=== PATIENT | male | born 1965 | race Caucasian/White ===

== ENCOUNTER 2016-11-01 06:27 | Day surgery (SDC) | payer OTHER ==
[2016-10-25 15:19] VITALS: BMI 29.4
[~2016-11-01 06:27] MED LIST: DEXAMETHASONE SOD PHOSPHATE 10 MG/ML 1 ML VIAL IV ONE; HEPARIN SODIUM,PORCINE 5,000 UNIT/ML 1 ML VIAL SQ ONE; LACTATED RINGERS 1,000 ML IV SCH; LIDOCAINE 1% 20 ML VIAL (10MG/ML) FOR IV START INTRADERMA PRN; MIDAZOLAM 2 MG/2 ML VIAL IV PRN; ONDANSETRON 4 MG/2 ML VIAL IVP ONE; SCOPOLAMINE 1.5MG/72HR PATCH TRANSDERM ONE; ceFAZolin 2 GM in SODIUM CHLORIDE 0.9% 100 ML IVPB ONE
[2016-11-01] MEDS ORDERED: LACTATED RINGERS 1,000 ML IV ONE ×2 (07:20→12:08)
[2016-11-01] MEDS ORDERED: LIDOCAINE 1% 20 ML VIAL (10MG/ML) FOR IV START INTRADERMA ONE ×2 (07:20→07:25)
[2016-11-01] MEDS ORDERED: MIDAZOLAM 2 MG/2 ML VIAL ONE (07:47)
[2016-11-01] MEDS ORDERED: GLYCOPYRROLATE 0.2 MG/ML 2 ML VIAL ONE (07:47)
[2016-11-01] MEDS ORDERED: PROPOFOL 10 MG/ML 20 ML VIAL IV ONE (07:47)
[2016-11-01] MEDS ORDERED: KETOROLAC 30 MG/ML 1 ML VIAL ONE (07:47)
[2016-11-01] MEDS ORDERED: SUCCINYLCHOLINE CHLORIDE 100 MG/5 ML SYR IV ONE (07:47)
[2016-11-01] MEDS ORDERED: fentaNYL (PF) 50 MCG/ML 2 ML AMP ONE (07:47)
[2016-11-01] MEDS ORDERED: LIDOCAINE 1% INJ 10MG/ML (20 ML MDV) ONE (07:47)
[2016-11-01] MEDS ORDERED: NEOSTIGMINE 1 MG/ML 10 ML VIAL ONE (07:47)
[2016-11-01] MEDS ORDERED: ROCURONIUM BROMIDE 10 MG/ML 10 ML VIAL IV ONE (07:47)
[2016-11-01] MEDS ORDERED: HYDROmorphone (PF) 1 MG/ML ONE (07:47)
--- NOTE | 2016-11-01 07:49 | P.GSHP ---
History of Present Illness H&P Date: 11/01/16 Chief Complaint: Umbilical hernia Vision 50-year-old male who presented with an enlarging umbilical hernia. There is some associated diastases recti. It is not painful. On this started presenting itself was 6 months ago and since then has grown in size. He does lift some to lift heavy weights but not a lot of heavy lifting. There is no nausea no vomiting or signs of obstruction. - Constitutional Constitutional: Denies chills, Denies fever - EENT Eyes: denies blurred vision, denies pain Ears, nose, mouth and throat: Denies headache, Denies sore throat - Cardiovascular Cardiovascular: Denies chest pain, Denies shortness of breath - Respiratory Respiratory: Denies cough, Denies 7 - Gastrointestinal Gastrointestinal: Denies abdominal pain, Denies diarrhea, Denies nausea, Denies vomiting - Genitourinary (Male) Genitourinary: Denies dysuria, Denies hematuria - Musculoskeletal Musculoskeletal: Denies myalgias Past Medical History Past Medical History: GERD/Reflux History of Any Multi-Drug Resistant Organisms: None Reported Past Surgical History: Appendectomy Additional Past Surgical History / Comment(s): COLONOSCOPY/POLYPS REMOVED Past Anesthesia/Blood Transfusion Reactions: No Reported Reaction Past Psychological History: No Psychological Hx Reported Smoking Status: Never smoker Past Alcohol Use History: Occasional Past Drug Use History: None Reported - Past Family History Mother Family Medical History: No Reported History Medications and Allergies Home Medications Medication Instructions Recorded Confirmed Type Multivitamins, Thera [Multivitamin] 1 tab PO DAILY 10/25/16 11/01/16 History Omeprazole [PriLOSEC] 20 mg PO AC-BRKT 10/25/16 11/01/16 History Allergies Allergy/AdvReac Type Severity Reaction Status Date / Time Penicillins Allergy Rash/Hives Verified 11/01/16 06:54 Surgical - Exam Vital Signs Temp Pulse Resp BP Pulse Ox 97.7 F 87 18 133/85 97 11/01/16 06:50 11/01/16 06:50 11/01/16 06:50 11/01/16 06:50 11/01/16 06:50 - General well developed, well nourished, no distress - Eyes normal ocular movement, no icteric - Neck no masses, trachea midline - Respiratory normal respiratory effort, clear to auscultation - Cardiovascular Rhythm: regular - Abdomen Abdomen: soft, non tender, no guarding, no rigid, no rebound Assessment and Plan (1) Umbilical hernia without obstruction and without gangrene Status: Acute Plan: Patiet has an umbilical hernia that is growing progressively I have recommeneded a arobot assisted laparoccopic repair. He understands and is willing to proceed
[2016-11-01] MEDS ORDERED: BUPIVACAIN-EPI 0.25%-1:200,000 30 ML VIAL SQ ONE (08:23)
--- NOTE | 2016-11-01 10:16 | P.OP ---
Date of Procedure: 11/01/16 Preoperative Diagnosis: Umbilical hernia with diastasis recti Postoperative Diagnosis: Umbilical and ventral hernia with incarcerated fat and diastasis recti Procedure(s) Performed: Robot assited laparoscopic repair of umbilical and ventral hernias with plication of diastasis recti Anesthesia: HERVE Surgeon: Redd Lux Estimated Blood Loss (ml): 10 Pathology: none sent Condition: stable Disposition: PACU Operative Findings: Multiple hernia. Umbilical hernia fascial defect measured 2.4 cm, the 2 smaller hernias were4 cm superior to it and the fascial defect measured o.4 and 0.3 cm and contained incarcerated fat with at least average 4 cm diastasis. Description of Procedure: Informed consent was obtained and the patient prior to the operation. Patient identified in the preoperative holding area taken the operating room placed in supine position given general anesthesia with endotracheal intubation. The patient's right arm was tucked and left was extended out After appropriately positioning the patient the patient was prepped and draped in the usual sterile surgical fashion. Appropriate timeout was called. Patient received 2 g of Ancef for skin prophylaxis and 5000 units of subcu heparin for thromboprophylaxis preoperatively. SCDs were placed. Left upper quadrant with a identified and infiltrated with lidocaine small incision was made with the help of 11 blade and then a Veress needle was introduced position of which was checked with the help of the drop test. The abdomen was then insufflated to 15 mmHg. Once that was done, 12 mm port was placed in the left upper quadrant and 2 8 mm ports were placed in the left upper quadrant and left lower quadrant respectively. At this time for laparoscopic scope was removed and the robot was docked with the 12 mm camera and the progress in the left hand and scissors in the right hand were taken.. The hernia was identified and measured to be approximately 2.4 cm fascial defect . A preperitoneal plane was created around the fascial defect extending below so that there was good area to place the mesh . While dissecting out the preperitoneal fat and the fascia stability with the epigastrium there were 2 further fascial defects noted and the fat was removed from them. They were measured at 0.3 and 0.4 cm fascial defects. There was also significant amount of diastases superior and inferior to both of these hernias. Due to the diastases thinning out of the central fascia decision was made to plicate the entire diastases and close the fascial defects. Oh stratification suture was used to close both the fascial defect and run placating running suture from the epigastrium all the way down to 4 cm below the lower end of the umbilical defect and it was then run back upwards so as to appropriately plicated and completely releasing the tension on the first suture line. Once that had been done the fascial defect was measured and 15.4 x 10.4 size mesh were was selected. This was the mesh with the echo positioning system. This was introduced in the abdominal cavity and elevated giving good at least 4.5 cm fascial currently on the fascial defects on all sides. Once that was done it was sutured at the edges with the help of 20V lock. A central suture between the mesh and the abdominal anterior abdominal wall was also done so as to oppose it well with the abdominal wall. This was done with a 20V lock as well. Once that was done and the mesh was in appropriate position and the procedure was completed. There is no bleeding. At this time the procedure was terminated. The robot was undocked and its instruments removed. Using the laparoscope the 12 mm port site was closed with a Rony Avila and 0 PDS. The ports were removed abdomen was desufflated and the skin was closed with the help of 4-0 Monocryl. Dermabond was applied. The patient tolerated the procedure well there were no complications patient was taken to recovery room in stable condition after extubation.
[2016-11-01 10:23] VITALS: TEMP 98.8
[2016-11-01] MEDS: HYDROmorphone 1 MG/ML 1 ML SYRINGE IVP PRN ×2 (10:40→10:59)
[2016-11-01 12:22] VITALS: RESP 16
[2016-11-01 14:37] VITALS: BP 118/72; PULSE 94
== END 2016-11-01 15:22 | disposition home or self-care (01) ==
LOC: OR 06:27
PROVIDERS: ATTEND Surgery
DX: K43.6 Other and unspecified ventral hernia with obstruction, without gangrene (principal); K42.0 Umbilical hernia with obstruction, without gangrene; K21.9 Gastro-esophageal reflux disease without esophagitis; Z79.899 Other long term (current) drug therapy; Z88.0 Allergy status to penicillin
CPT/HCPCS: 86900; 86901; 86850; 49653; C1781; J2250; J1644; J1100; J2710; J0690; J2405; J2001; J3010; J1885; J1170; J0330; J2704

== ENCOUNTER 2018-03-10 06:44 | Day surgery (SDC) | payer OTHER ==
--- NOTE | 2018-03-09 22:56 | P.GSHP ---
History of Present Illness H&P Date: 03/10/18 CHIEF COMPLAINT: Colon screen HISTORY OF PRESENT ILLNESS: The patient is a 52-year-old male who presents for colon screen. Lower endoscopy was offered for further evaluation and management. PAST MEDICAL HISTORY: Please see list. PAST SURGICAL HISTORY: Please see list. MEDICATIONS: Please see list. ALLERGIES: Please see list. SOCIAL HISTORY: No illicit drug use FAMILY HISTORY: No reports of Crohn disease or ulcerative colitis. REVIEW OF ORGAN SYSTEMS: CONSTITUTIONAL: No reports of fevers or chills. PHYSICAL EXAM: VITAL SIGNS: Stable GENERAL: Well-developed pleasant in no acute distress. HEENT: No scleral icterus. Extraocular movements grossly intact. Moist buccal mucosa. NECK: Supple without lymphadenopathy. CHEST: Unlabored respirations. Equal bilateral excursions. CARDIOVASCULAR: Regular rate and rhythm. Distal 2+ pulses. ABDOMEN: Soft, nontender, nondistended. MUSCULOSKELETAL: No clubbing, cyanosis, or edema. ASSESSMENT: 1. Colon screen. PLAN: 1. Recommend proceeding with a lower endoscopy Past Medical History Past Medical History: GERD/Reflux History of Any Multi-Drug Resistant Organisms: None Reported Past Surgical History: Appendectomy, Hernia Repair Additional Past Surgical History / Comment(s): HIATAL HERNIA IN OCT 2016. COLONOSCOPY/POLYPS REMOVED Past Anesthesia/Blood Transfusion Reactions: No Reported Reaction Past Psychological History: No Psychological Hx Reported Smoking Status: Never smoker Past Alcohol Use History: Occasional Past Drug Use History: None Reported - Past Family History Mother Family Medical History: No Reported History Medications and Allergies Home Medications Medication Instructions Recorded Confirmed Type Multivitamins, Thera [Multivitamin] 1 tab PO DAILY 10/25/16 03/07/18 History Omeprazole [PriLOSEC] 20 mg PO AC-BRKFST 10/25/16 03/07/18 History Allergies Allergy/AdvReac Type Severity Reaction Status Date / Time Penicillins Allergy Rash/Hives Verified 03/07/18 10:44
[2018-03-10 07:04] VITALS: RESP 16; TEMP 97.8
[2018-03-10] MEDS ORDERED: LACTATED RINGERS 1,000 ML IV ONE (07:09)
[2018-03-10] MEDS ORDERED: LIDOCAINE 1% 20 ML VIAL (10MG/ML) FOR IV START INTRADERMA ONE (07:09)
[2018-03-10] MEDS ORDERED: PROPOFOL 10 MG/ML 20 ML VIAL IV ONE (07:45)
[2018-03-10] MEDS ORDERED: LIDOCAINE 1% INJ 10MG/ML (20 ML MDV) ONE (07:45)
--- NOTE | 2018-03-10 08:11 | P.PCN ---
Date of Procedure: 03/10/18 Description of Procedure: PREOPERATIVE DIAGNOSIS: Colonoscopy screening. Family history of colon cancer Family history of colon polyp POSTOPERATIVE DIAGNOSIS: Colonoscopy screening. Family history of colon cancer Family history of colon polyp Diverticulosis, scattered. External hemorrhoids Internal hemorrhoids OPERATION: Colonoscopy to the ileocecal valve and appendiceal orifice. SURGEON: Rina Kohler MD. ANESTHESIA: MAC. INDICATIONS: The patient is a 52-year-old male who presents for colonoscopy screening. Last colonoscopy was 5 years ago. Benefits and risks were described and informed consent was obtained. DESCRIPTION OF PROCEDURE: The patient had undergone Gatorade, MiraLAX and Dulcolax prep. He had been brought into the operating room and laid in the left lateral decubitus position. After adequate intravenous sedation, the rectum was examined with 2% lidocaine jelly. The prostate was smooth and without nodularity. External hemorrhoids, grade 3, were encountered. The rectal tone was within normal limits. No lesions were palpated in the rectal vault. An Olympus colonoscope was advanced until the ileocecal valve and appendiceal orifice were clearly viewed. The prep was good with visualization of the mucosal folds. Scattered diverticulosis was encountered. No colonic polyps were found. No evidence of focal colitis was found. Retroflexion of the scope demonstrated grade 2 internal hemorrhoids without active bleeding or inflammation. The colon was desufflated. The patient had tolerated the procedure well. Withdrawal time was over 6 minutes. FINDINGS: Internal hemorrhoids, grade 2 External prolapsed hemorrhoids, grade 3 No arteriovenous malformations. No adenomatous polyps. No focal colitis. Scattered diverticulosis RECOMMENDATIONS: Lower endoscopy in 5 years, 2022 Plan - Discharge Summary Discharge Rx Participant: No New Discharge Prescriptions: No Action Multivitamins, Thera [Multivitamin] 1 tab PO DAILY Omeprazole [PriLOSEC] 20 mg PO AC-BRKFST Discharge Medication List Multivitamins, Thera [Multivitamin] 1 tab PO DAILY 10/25/16 [History] Omeprazole [PriLOSEC] 20 mg PO AC-BRKFST 10/25/16 [History]
[2018-03-10 08:32] VITALS: BP 107/75; PULSE 65
== END 2018-03-10 08:50 | disposition home or self-care (01) ==
LOC: ORWHC2ENDO 06:44
PROVIDERS: ATTEND Surgery Plastic and Reconstructive Surgery
DX: Z12.11 Encounter for screening for malignant neoplasm of colon (principal); K21.9 Gastro-esophageal reflux disease without esophagitis; K57.30 Diverticulosis of large intestine without perforation or abscess without bleeding; K64.2 Third degree hemorrhoids; Z88.0 Allergy status to penicillin; Z80.0 Family history of malignant neoplasm of digestive organs; Z83.71 Family history of colonic polyps; Z79.899 Other long term (current) drug therapy
CPT/HCPCS: 45378; J2001; J2704

== ENCOUNTER → 2020-08-03 | Outpatient (CLI) | payer OTHER ==
[2020-08-03 15:59] LABS: Basophils # (A) 0.1 k/uL (0-0.2); Basophils % (A) 1 %; Eosinophils # (A) 0.1 k/uL (0-0.7); Eosinophils % (A) 2 %; HCT 45.7 % (39.0-53.0); HGB 15.4 gm/dL (13.0-17.5); Lymphocytes # (A) 1.6 k/uL (1.0-4.8); Lymphocytes % (A) 20 %; MCH 30.3 pg (25.0-35.0); MCHC 33.6 g/dL (31.0-37.0); MCV 90.1 fL (80.0-100.0); Monocytes # (A) 0.4 k/uL (0-1.0); Monocytes % (A) 6 %; Neutrophils # (A) 5.6 k/uL (1.3-7.7); Neutrophils % (A) 71 %; Platelet Count 290 k/uL (150-450); RBC 5.07 m/uL (4.30-5.90); RDW 12.3 % (11.5-15.5); WBC 7.9 k/uL (3.8-10.6)
[2020-08-04 00:08] LABS: Erythrocyte Sedimentation Rate 3 mm/Hr (0-20)
[2020-08-04 05:29] LABS: C Reactive Protein <0.4 mg/dL (0.0-0.8); Rheumatoid Factor, Qnt 6 IU/mL (0-15); Uric Acid 5.3 mg/dL (3.7-8.7)
== END | disposition home or self-care (01) ==
LOC: LABWHC1 14:49
PROVIDERS: ATTEND Podiatrist Foot & Ankle Surgery
DX: M00.9 Pyogenic arthritis, unspecified (principal)
CPT/HCPCS: 36415; 84550; 85025; 85652; 86038; 86140; 86431; 86812

== ENCOUNTER → 2021-03-16 | Outpatient (CLI) | payer OTHER ==
[2021-03-16 11:47] LABS: Basophils # (A) 0.05 X 10*3/uL (0.00-0.10); Basophils % (A) 0.7 %; Eosinophils # (A) 0.19 X 10*3/uL (0.04-0.35); Eosinophils % (A) 2.8 %; HCT 46.1 % (39.6-50.0); HGB 15.1 g/dL (13.0-17.0); Lymphocytes # (A) 1.56 X 10*3/uL (0.90-5.00); Lymphocytes % (A) 23.2 %; MCH 29.4 pg (27.0-32.0); MCHC 32.8 g/dL (32.0-37.0); MCV 89.7 fL (80.0-97.0); Mean Platelet Volume 9.6 fL (9.5-12.2); Monocytes # (A) 0.58 X 10*3/uL (0.20-1.00); Monocytes % (A) 8.6 %; Platelet Count 275 X 10*3/uL (140-440); RBC 5.14 X 10*6/uL (4.40-5.60); RDW 12.2 % (11.5-14.5); WBC 6.73 X 10*3/uL (4.50-10.00)
[2021-03-16 15:15] LABS: African American GFR (CKD) 97.8 (60.0-200.0); Albumin 4.8 g/dL (3.80-4.90); Albumin/Globulin Ratio 2.18 (1.60-3.17); Anion Gap 9.2 mmol/L (4.00-12.00); Calcium 10.2 mg/dL (8.7-10.3); Carbon Dioxide 26.8 mmol/L (21.6-31.8); Chol/HDL Ratio 4.54; Globulin 2.2 g/dL (1.6-3.3); LDL Cholesterol,Calculated 128.4 mg/dL (0.0-131.0); Magnesium 2.1 mg/dL (1.5-2.4); Non-African American GFR(CKD) 84.4 (60.0-200.0); Potassium 5.3 mmol/L (3.5-5.5); Total Bilirubin 0.7 mg/dL (0.3-1.2); VLDL Calculation 41.6 mg/dL (5.00-40.00)
[2021-03-16 15:22] LABS: Prostate Specific Antigen 1.7 ng/mL (0.0-3.5)
== END | disposition home or self-care (01) ==
LOC: LABWHC1 07:00
PROVIDERS: ATTEND Family Medicine
DX: Z00.00 Encounter for general adult medical examination without abnormal findings (principal); Z12.5 Encounter for screening for malignant neoplasm of prostate; Z11.59 Encounter for screening for other viral diseases; R20.2 Paresthesia of skin
CPT/HCPCS: 36415; 80053; 80061; 82607; 83735; 84153; 84443; 85025; 86803

== ENCOUNTER 2023-04-11 07:23 | Day surgery (SDC) | payer OTHER ==
[~2023-04-11 07:23] MED LIST changes: -DEXAMETHASONE SOD PHOSPHATE 10 MG/ML 1 ML VIAL IV ONE; -HEPARIN SODIUM,PORCINE 5,000 UNIT/ML 1 ML VIAL SQ ONE; -LIDOCAINE 1% 20 ML VIAL (10MG/ML) FOR IV START INTRADERMA PRN; -MIDAZOLAM 2 MG/2 ML VIAL IV PRN; -ONDANSETRON 4 MG/2 ML VIAL IVP ONE; -SCOPOLAMINE 1.5MG/72HR PATCH TRANSDERM ONE; -ceFAZolin 2 GM in SODIUM CHLORIDE 0.9% 100 ML IVPB ONE
--- NOTE | 2023-04-11 07:39 | P.GSHP ---
History of Present Illness H&P Date: 04/11/23 CHIEF COMPLAINT: Colon screen HISTORY OF PRESENT ILLNESS: The patient is a 57-year-old male who presents for colon screen. Lower endoscopy was offered for further evaluation and management. PAST MEDICAL HISTORY: Please see list. PAST SURGICAL HISTORY: Please see list. MEDICATIONS: Please see list. ALLERGIES: Please see list. SOCIAL HISTORY: No illicit drug use FAMILY HISTORY: No reports of Crohn disease or ulcerative colitis. REVIEW OF ORGAN SYSTEMS: CONSTITUTIONAL: No reports of fevers or chills. PHYSICAL EXAM: VITAL SIGNS: Stable GENERAL: Well-developed pleasant in no acute distress. HEENT: No scleral icterus. Extraocular movements grossly intact. Moist buccal mucosa. NECK: Supple without lymphadenopathy. CHEST: Unlabored respirations. Equal bilateral excursions. CARDIOVASCULAR: Regular rate and rhythm. Distal 2+ pulses. ABDOMEN: Soft, nontender, nondistended. MUSCULOSKELETAL: No clubbing, cyanosis, or edema. ASSESSMENT: 1. Colon screen. PLAN: 1. Recommend proceeding with a lower endoscopy Past Medical History Past Medical History: GERD/Reflux History of Any Multi-Drug Resistant Organisms: None Reported Past Surgical History: Appendectomy, Hernia Repair Additional Past Surgical History / Comment(s): 04/04/23 MASS REMOVED FROM BACK OF NECK AREA IN DR. LOERA. HIATAL HERNIA IN OCT 2016. COLONOSCOPY/POLYPS REMOVED Past Anesthesia/Blood Transfusion Reactions: No Reported Reaction Past Psychological History: No Psychological Hx Reported Smoking Status: Never smoker Past Alcohol Use History: Occasional Past Drug Use History: None Reported - Past Family History Mother Family Medical History: No Reported History Medications and Allergies Home Medications Medication Instructions Recorded Confirmed Type Multivitamins, Thera [Multivitamin] 1 tab PO DAILY 10/25/16 04/08/23 History Omeprazole [PriLOSEC] 20 mg PO AC-BRKFST 10/25/16 04/08/23 History Allergies Allergy/AdvReac Type Severity Reaction Status Date / Time Penicillins Allergy Rash/Hives Verified 04/08/23 12:17
[2023-04-11 08:21] VITALS: TEMP 97.8
[2023-04-11] MEDS ORDERED: PROPOFOL 10 MG/ML 20 ML VIAL IV ONE (08:22)
--- NOTE | 2023-04-11 09:10 | P.PCN ---
Date of Procedure: 04/11/23 Description of Procedure: PREOPERATIVE DIAGNOSIS: Colonoscopy screening. Family history colon cancer, father POSTOPERATIVE DIAGNOSIS: Colonoscopy screening. Diverticulosis, scattered. OPERATION: Colonoscopy to the cecum, ileocecal valve and appendiceal orifice. SURGEON: Rina Kohler MD. ANESTHESIA: MAC. INDICATIONS: The patient is a 57-year-old male who presents for colonoscopy screening. Last colonoscopy 5 years ago. Benefits and risks were described and informed consent was obtained. DESCRIPTION OF PROCEDURE: The patient had undergone Sutab prep. The patient had been brought into the operating room and laid in the left lateral decubitus position. After adequate intravenous sedation, the rectum was examined with 2% lidocaine jelly. No external hemorrhoids were encountered. The rectal tone was within normal limits. No lesions were palpated in the rectal vault. An Olympus colonoscope was advanced until the cecum, ileocecal valve and appendiceal orifice were clearly viewed. The prep was fair. Scattered diverticulosis was encountered. No colonic polyps were found. No evidence of focal colitis was found. Retroflexion of the scope demonstrated grade 3 internal hemorrhoids without active bleeding or inflammation. The colon was desufflated. The patient had tolerated the procedure well. Withdrawal time was over 6 minutes.AC FINDINGS: Aronchick preparation quality scale 2+ (1-5) Internal hemorrhoids, grade 3 External prolapsed hemorrhoids, grade 3 No arteriovenous malformations. No adenomatous polyps. No focal colitis. Sigmoid diverticulosis RECOMMENDATIONS: Lower endoscopy in 2027 Plan - Discharge Summary New Discharge Prescriptions: Continue Multivitamins, Thera [Multivitamin (formulary)] 1 tab PO DAILY Omeprazole [PriLOSEC] 20 mg PO -[facility] Discharge Medication List Multivitamins, Thera [Multivitamin (formulary)] 1 tab PO DAILY 10/25/16 [History] Omeprazole [PriLOSEC] 20 mg PO AC-BRKFST 10/25/16 [History] Follow up Appointment(s)/Referral(s): Rina Kohler MD [STAFF PHYSICIAN] - As Needed Patient Instructions/Handouts: Diverticulosis Diet (GEN), Diverticulosis (GEN) Activity/Diet/Wound Care/Special Instructions: Repeat colonoscopy 5 years, 2027 Discharge Disposition: HOME SELF-CARE
[2023-04-11 09:14] VITALS: BP 113/79; PULSE 72; RESP 16
== END 2023-04-11 09:30 | disposition home or self-care (01) ==
LOC: ORWHC2ENDO 07:23
PROVIDERS: ATTEND Surgery Plastic and Reconstructive Surgery
DX: Z12.11 Encounter for screening for malignant neoplasm of colon (principal); K57.30 Diverticulosis of large intestine without perforation or abscess without bleeding; K64.2 Third degree hemorrhoids; K64.4 Residual hemorrhoidal skin tags; K21.9 Gastro-esophageal reflux disease without esophagitis; F10.90 Alcohol use, unspecified, uncomplicated; Z90.49 Acquired absence of other specified parts of digestive tract; Z80.0 Family history of malignant neoplasm of digestive organs; Z98.890 Other specified postprocedural states; Z88.0 Allergy status to penicillin
CPT/HCPCS: 45378; J2704

== ENCOUNTER → 2024-06-06 | Outpatient (CLI) | payer OTHER | END | disposition home or self-care (01) | LOC: LABWHC1 09:02 | PROVIDERS: ATTEND Family Medicine | DX: Z00.00 Encounter for general adult medical examination without abnormal findings (principal); Z12.5 Encounter for screening for malignant neoplasm of prostate | CPT/HCPCS: 80061; 80053; 85025; 36415; G0103 ==

== ENCOUNTER → 2024-12-09 | Outpatient (CLI) | payer OTHER | END | disposition home or self-care (01) | LOC: LABPAT 14:34 | PROVIDERS: ATTEND Family Medicine | DX: Z00.00 Encounter for general adult medical examination without abnormal findings (principal); Z12.5 Encounter for screening for malignant neoplasm of prostate | CPT/HCPCS: 36415; 93005 ==

== ENCOUNTER → 2024-12-12 | Outpatient (CLI) | payer OTHER ==
[2024-12-12 13:28] LABS: Chol/HDL Ratio 4.25 Ratio; LDL Cholesterol,Calculated 124.3 mg/dL (0.0-131.0)
== END | disposition home or self-care (01) ==
LOC: LABWHC1 08:07
PROVIDERS: ATTEND Family Medicine
DX: Z00.00 Encounter for general adult medical examination without abnormal findings (principal)
CPT/HCPCS: 36415; 80061

== ENCOUNTER 2024-12-16 09:40 | Day surgery (SDC) | payer OTHER ==
[2024-12-11 15:43] VITALS: BMI 29.6
--- NOTE | 2024-12-15 19:20 | HP ---
HISTORY AND PHYSICAL DATE OF SURGERY: 12/16/2024. HISTORY OF PRESENT ILLNESS: Zafar Sutherland is a 58-year-old gentleman, seen with progressive left knee pain. After having treatment options discussed, he elected to proceed with left knee arthroscopy. Consent was obtained. PAST MEDICAL HISTORY: Gastroesophageal reflux disease. PAST SURGICAL HISTORY: Noncontributory. DAILY MEDICATIONS: 1. Prilosec. 2. Ibuprofen. ALLERGIES: Penicillin. SOCIAL HISTORY: He denies current tobacco use. PHYSICAL EVALUATION OF THE LEFT KNEE: His range of motion is -1/2 to 120 degrees. He has a mild effusion. Tenderness in the medial joint line. Positive medial Dyan's. Ligaments stable. Hip rotation is without pain. Distal neurovascular exam is intact. IMAGING STUDIES: Radiographs of the left knee revealed mild osteoarthritis. MRI of the left knee revealed medial meniscal tear. IMPRESSION: Internal derangement of left knee with medial meniscal tear. PLAN: Left knee arthroscopy with partial medial meniscectomy and debridement. MMODL / IJN: [id number] /
[2024-12-16] MEDS: IV FLUID CONTINUATION 1,000 ML IV ONE (10:06)
[2024-12-16] MEDS: DEXAMETHASONE SOD PHOSPHATE 4 MG/ML 1 ML VIAL IV ONE (10:37)
[2024-12-16] MEDS: ONDANSETRON 4 MG/2 ML VIAL IVP ONE (10:37)
[2024-12-16] MEDS: LACTATED RINGERS 1,000 ML IV SCH (10:39)
[2024-12-16] MEDS: FAMOTIDINE 20 MG/2 ML VIAL IV STA (10:56)
[2024-12-16] MEDS ORDERED: fentaNYL (PF) 50 MCG/ML 2 ML AMP ONE (11:15)
[2024-12-16] MEDS ORDERED: MIDAZOLAM 2 MG/2 ML VIAL ONE (11:15)
[2024-12-16] MEDS ORDERED: LIDOCAINE 1% INJ 10MG/ML (20 ML MDV) ONE (11:15)
[2024-12-16] MEDS ORDERED: KETOROLAC 15 MG/ML 1 ML VIAL ONE (11:15)
[2024-12-16] MEDS ORDERED: PROPOFOL 10 MG/ML 20 ML VIAL IV ONE (11:15)
[2024-12-16] MEDS: BUPIVACAINE (PF) 0.25% 30 ML VIAL MISCELLANE ONE (11:50)
[2024-12-16 12:06] VITALS: TEMP 97
--- NOTE | 2024-12-16 12:06 | P.OP ---
Date of Procedure: 12/16/24 Preoperative Diagnosis: Internal derangement left knee Postoperative Diagnosis: 1. Tear medial and lateral meniscus left knee 2. Grade IV chondromalacia medial femoral condyle left knee 3. Reactive synovitis medial, lateral and suprapatellar compartments left knee Procedure(s) Performed: 1. Arthroscopic partial medial and lateral meniscectomy left knee 2. Arthroscopic microfracture medial femoral condyle left knee 3. Arthroscopic partial synovectomy medial, lateral and suprapatellar compartments left knee Anesthesia: TOMÁSA, local Surgeon: Noah Summers Estimated Blood Loss (ml): 4 Pathology: none sent Condition: stable Disposition: PACU Indications for Procedure: 58-year-old patient seen with progressive left knee pain. After having treatment options discussed, he elected to proceed with arthroscopy. Operative Findings: See description of procedure Description of Procedure: Patient was taken to the operative suite. Patient underwent a general anesthetic by the department of anesthesia. Patient was given preoperative antibiotics. The left lower extremity was placed in a well-padded arthroscopic leg ramirez. The left leg was prepped and draped in the normal sterile orthopedic fashion. A lateral parapatellar and suprapatellar incision was made. Trochars were inserted. Arthroscopy was initiated. Suprapatellar pouch revealed diffuse thick reactive synovitis. The patellofemoral joint appeared to articulate congruently. There was grade II chondromalacia patella without significant osteochondral tears. The scope was guided into the medial gutter. No loose bodies or plica were identified the scope was then guided into the medial compartment. A medial parapatellar incision was made. Trocar inserted followed by probe. There was a complex tear involving the posterior horn of the medial meniscus which extended to the mid body area. There were grade III chondromalacia changes of the medial femoral with large osteochondral flap tears present. There was thick reactive synovitis anteriorly. I performed a partial medial meniscectomy getting down to stable meniscal tissue. I performed a chondroplasty of the medial femoral condyle getting down to stable osteochondral tissue. I performed a partial synovectomy decompressing the thick reactive synovitis anteriorly. The residual meniscus was stable. The residual osteochondral surface was stable. I did note an area of exposed bone involving the medial femoral condyle/grade IV chondromalacia measuring less than a centimeter in diameter. I introduced a microfracture awl and I performed a microfracture to the area of exposed bone penetrating the bone with resultant bleeding at the microfracture site. The residual osteochondral surface was probed and was found to be stable. We again noted disability about the residual meniscus. There was good decompression of the synovitis. Scope and probe were then guided into the intercondylar notch. Cruciates were identified, probed and found to be stable. The scope and probe were then guided into lateral compartment. Was a tear involving the posterior horn and mid body areas of the lateral meniscus. There were grade I chondromalacia changes lateral compartment without tears. There was some reactive synovitis anteriorly. I performed a partial lateral meniscectomy getting down to stable meniscal tissue. I performed a partial synovectomy decompressing the reactive synovitis. The residual meniscus was stable. There was good decompression of the synovitis. The scope was in guided back into the suprapatellar compartment. Reduced a motorized shaver into the suprapatellar compartment. I debrided some piecemeal fragments of meniscus that I encountered. I performed a partial synovectomy. The shaver was now removed. There was good decompression of the synovitis. I took 1 more look around the entire knee, no residual debris. Instruments were now removed from the joint. The joint was infiltrated with .25% Marcaine. Steri-Strips were applied to the portal sites. Sterile dressings were applied. The patient was placed into a OSIEL hose. No tourniquet was utilized. The patient was awakened, transferred to a bed and taken to recovery stable satisfactory condition.
[2024-12-16] MEDS: HYDROmorphone 0.5 MG/0.5 ML SYRINGE IVP PRN (12:23)
[2024-12-16 13:46] VITALS: RESP 18
[2024-12-16 14:15] VITALS: BP 125/76; PULSE 64
== END 2024-12-16 14:39 | disposition home or self-care (01) ==
LOC: OR 09:40
PROVIDERS: ATTEND Orthopaedic Surgery
DX: S83.282A Other tear of lateral meniscus, current injury, left knee, initial encounter (principal); S83.242A Other tear of medial meniscus, current injury, left knee, initial encounter; K21.9 Gastro-esophageal reflux disease without esophagitis; M22.42 Chondromalacia patellae, left knee; M65.162 Other infective (teno)synovitis, left knee; Z88.0 Allergy status to penicillin; Z90.49 Acquired absence of other specified parts of digestive tract; Z79.899 Other long term (current) drug therapy; X58.XXXA Exposure to other specified factors, initial encounter
CPT/HCPCS: 29879; 29880; J2250; J1100; J0690; J2405; J2003; J3010; J3490; J1885; J2704; J1171; J0665